=== PATIENT | male | born 1940 | race Caucasian/White ===

== ENCOUNTER 2017-01-19 12:20 | Day surgery (SDC) | payer MEDICARE, OTHER ==
[~2017-01-19 12:20] MED LIST: Brimonidine 0.2% Ophth Soln 5 ML Bottle ONE; Cataract Ophth Solution EYELF PRN; Hypromellose 2.5% Ophth Soln 15 ML Bottle EYELF PRN; Lactated Ringers 1,000 ML IV SCH; Lidocaine 1% 2 ML ONE; Lidocaine 3.5% Ophth Gel 1 ML Bottle ONE; Povidone-Iodine 5% Sterile Ophth Soln 30 ML Bottle ONE
[2017-01-19] MEDS: Proparacaine 0.5% Ophth Soln 15 ML Bottle EYELF PRN ×2 (12:44→14:23)
[2017-01-19] MEDS ORDERED: Midazolam 1 MG/ML 2 ML SDV ONE (13:52)
[2017-01-19] MEDS ORDERED: Chondroitin Sulfate/Hyaluronate Sodium Ophth Inj 0.5 ML Syringe IOCULAR ONE (14:24)
[2017-01-19] MEDS ORDERED: Lidocaine 1% PF 2 ML SDV INJECT ONE (14:24)
[2017-01-19] MEDS ORDERED: Vancomycin 500 MG SDV EYELF ONE (14:25)
[2017-01-19] MEDS ORDERED: Balanced Salt Solution Ophth Irrig 500 ML Bottle IOCULAR ONE (14:25)
[2017-01-19] MEDS ORDERED: Ciprofloxacin 0.3% Ophth Soln 2.5 ML Bottle EYELF ONE (14:25)
[2017-01-19 15:32] VITALS: BP 145/79
--- NOTE | 2017-01-19 18:28 | OR ---
PREOPERATIVE DIAGNOSIS: Senile nuclear cataract, left eye. POSTOPERATIVE DIAGNOSIS: Pseudophakia, left eye. PROCEDURE PERFORMED: Cataract extraction with intraocular lens implantation by phacoemulsification technique, left eye. ANESTHESIA: Topical anesthesia. ESTIMATED BLOOD LOSS: None. COMPLICATIONS: None. INDICATIONS: The patient is a 76-year-old gentleman, who was found to have a senile nuclear cataract, reducing his best corrected visual acuity. After explaining the risks, benefits, and alternatives of cataract surgery, an informed consent was obtained. DESCRIPTION OF PROCEDURE: After identifying the patient in the preoperative area, the patient was brought to the operating room. The patient was prepped and draped in a sterile fashion. A lid speculum was inserted into the eye. The microscope was brought into the field. Lidocaine gel was applied to the external surface of the eye. A paracentesis was made 3 clock hours away from the surgeon's operating hand. The anterior chamber was anesthetized with preservative-free Lidocaine. The anterior chamber was filled with Viscoat. A clear corneal incision was made at the 180-degree meridian with a 2.75mm keratome. A continuous tear circular capsulorrhexis was performed. The nucleus was hydrodissected with balanced salt solution. The nucleus was sculpted and removed from the eye using a divide and conquer technique with the phacoemulsification handpiece. The residual viscoelastic was removed with the I/A handpiece. The anterior chamber and capsular bag were filled with Amvisc. An ACE lens, model PCB00 with a power of 20.0 diopters and a serial number of [id number] was injected into the capsular bag. The lens was rotated completely into the capsular bag with a Sinskey hook. The residual viscoelastic was removed with the I/A handpiece. The anterior chamber was filled with balanced salt solution to a physiologic pressure. The corneal wound was closed with stromal hydration and seen to be water tight by Weck-Bianca sponge testing. The patient received a drop of Zymar and Alphagan at the end of the case. There were no complications of this case. The patient will be followed postoperatively by Dr. Sushma Gant and Dr. Nishant Barbosa. SKA: 01/19/2017 14:39:23 MODL: 01/19/2017 18:21:49 /[id number]
== END 2017-01-19 15:35 | disposition home or self-care (01) ==
LOC: VM.SDS 12:20
PROVIDERS: ATTEND Ophthalmology
DX: H25.12 Age-related nuclear cataract, left eye (principal); Z96.1 Presence of intraocular lens; Z79.899 Other long term (current) drug therapy; Z79.82 Long term (current) use of aspirin
CPT/HCPCS: 00142; 66984; A9270; J2250; J3370; J7120; V2632

== ENCOUNTER 2017-02-16 10:01 | Day surgery (SDC) | payer MEDICARE, OTHER ==
[~2017-02-16 10:01] MED LIST changes: -Cataract Ophth Solution EYELF PRN; +Cataract Ophth Solution EYERT PRN; -Hypromellose 2.5% Ophth Soln 15 ML Bottle EYELF PRN; +Hypromellose 2.5% Ophth Soln 15 ML Bottle EYERT PRN; -Lactated Ringers 1,000 ML IV SCH; +Sodium Chloride 0.9% 10 ML Syringe FLUSH PRN
[2017-02-16] MEDS: Proparacaine 0.5% Ophth Soln 15 ML Bottle EYERT PRN ×2 (10:45→12:17)
[2017-02-16] MEDS ORDERED: Midazolam 1 MG/ML 2 ML SDV ONE (12:14)
[2017-02-16] MEDS ORDERED: Lidocaine 1% PF 2 ML SDV INJECT ONE (12:18)
[2017-02-16] MEDS ORDERED: Chondroitin Sulfate/Hyaluronate Sodium Ophth Inj 0.5 ML Syringe IOCULAR ONE (12:20)
[2017-02-16] MEDS ORDERED: Ciprofloxacin 0.3% Ophth Soln 2.5 ML Bottle EYERT ONE (12:20)
[2017-02-16] MEDS ORDERED: Vancomycin 500 MG SDV EYERT ONE (12:21)
[2017-02-16] MEDS ORDERED: Balanced Salt Solution Ophth Irrig 500 ML Bottle IOCULAR ONE (12:22)
[2017-02-16 13:14] VITALS: BP 153/74
--- NOTE | 2017-02-17 09:31 | OR ---
PREOPERATIVE DIAGNOSIS: Senile nuclear cataract, right eye. POSTOPERATIVE DIAGNOSIS: Pseudophakia, right eye. PROCEDURE PERFORMED: Cataract extraction with intraocular lens implantation by phacoemulsification technique, right eye. ANESTHESIA: Topical anesthesia. ESTIMATED BLOOD LOSS: None. COMPLICATIONS: None. INDICATIONS: The patient is a 76-year-old gentleman, who was found to have a senile nuclear cataract, reducing his best corrected visual acuity. After explaining the risks, benefits, alternatives of cataract surgery an informed consent was obtained. DESCRIPTION OF PROCEDURE: After identifying the patient in the preoperative area, the patient was brought to the operating room. The patient was prepped and draped in a sterile fashion. A lid speculum was inserted into the eye. The microscope was brought into the field. Lidocaine gel was applied to the external surface of the eye. A paracentesis was made 3 clock hours away from the surgeon's operating hand. The anterior chamber was anesthetized with preservative-free Lidocaine. The anterior chamber was filled with Viscoat. A clear corneal incision was made at the 180-degree meridian with a 2.75mm keratome. A continuous tear circular capsulorrhexis was performed. The nucleus was hydrodissected with balanced salt solution. The nucleus was sculpted and removed from the eye using a divide and conquer technique with the phacoemulsification handpiece. The residual viscoelastic was removed with the I/A handpiece. The anterior chamber and capsular bag were filled with Amvisc. An ACE lens, model ZCB00 with a power of 18.0 diopters and a serial number of [id number] was injected into the capsular bag. The lens was rotated completely into the capsular bag with a Sinskey hook. The residual viscoelastic was removed with the I/A handpiece. The anterior chamber was filled with balanced salt solution to a physiologic pressure. The corneal wound was closed with stromal hydration and seen to be water tight by Weck-Bianca sponge testing. The patient received a drop of Zymar and Alphagan at the end of the case. There were no complications of this case. The patient will be followed postoperatively by Dr. Sushma Gant. SKA: 02/16/2017 12:39:57 MODL: 02/16/2017 17:37:47 /[id number]
== END 2017-02-16 13:21 | disposition home or self-care (01) ==
LOC: VM.SDS 10:01
PROVIDERS: ATTEND Ophthalmology
DX: Z96.1 Presence of intraocular lens (principal); I10 Essential (primary) hypertension; E78.5 Hyperlipidemia, unspecified; Z79.899 Other long term (current) drug therapy; Z79.82 Long term (current) use of aspirin; K21.9 Gastro-esophageal reflux disease without esophagitis; J44.9 Chronic obstructive pulmonary disease, unspecified; Z87.891 Personal history of nicotine dependence
CPT/HCPCS: 00142; 66984; A9270; J2250; J3370; J7050; V2632

== ENCOUNTER 2024-08-26 10:31 | Observation (INO) | payer MEDICARE, BC ==
[2024-08-26 10:54] LABS: BASOPHILS PERCENT AUTO 0.6 % (0.2-1.2); EOSINOPHILS ABSOLUTE AUTO 0.1 x10^3/uL (0.0-0.5); EOSINOPHILS PERCENT AUTO 1.1 % (0.0-4.0); HEMATOCRIT 37.9 % (40.0-52.0); HEMOGLOBIN 13.3 g/dL (14.0-18.0); IMMATURE GRAN ABSOLUTE AUTO 0.02 x10^3/uL (0.00-0.07); LYMPHOCYTES ABSOLUTE AUTO 1.5 x10^3/uL (1.0-4.8); LYMPHOCYTES PERCENT AUTO 22.2 % (25.0-50.0); MEAN CORPUSCULAR HEMOGLOBIN 31.9 pg (26.0-32.0); MEAN CORPUSCULAR HGB CONC 35.1 g/dL (32.0-36.0); MEAN CORPUSCULAR VOLUME 90.9 fL (78.0-93.0); MONOCYTES ABSOLUTE AUTO 0.4 x10^3/uL (0.0-0.8); MONOCYTES PERCENT AUTO 6.7 % (2.0-11.0); NEUTROPHILS ABSOLUTE AUTO 4.5 x10^3/uL (1.8-7.7); NEUTROPHILS PERCENT AUTO 69.1 % (50.0-80.0); PLATELET COUNT,PLT 146 x10^3/uL (130-400); RED BLOOD CELL COUNT 4.17 x10^6/uL (4.5-6.0); WHITE BLOOD CELL COUNT,WBC 6.5 x10^3/uL (4.0-10.0)
[2024-08-26] MEDS ORDERED: HYDROMORPHONE 1 MG/ML PO ONE (10:57)
[2024-08-26] MEDS ORDERED: HYDROMORPHONE 1 MG/ML PO PRN ×2 (11:11→11:13)
[2024-08-26 11:13] LABS: A/G RATIO 1.06; ALBUMIN 3.4 g/dL (3.4-5.0); BILIRUBIN TOTAL 0.6 mg/dL (0.2-1.0); CALCIUM 9.8 mg/dL (8.5-10.1); CREATININE 1.3 mg/dL (0.70-1.30); EST CRCL DRUG DOSING (CG) 44.57 mL/min; PROTEIN TOTAL,TP 6.6 g/dL (6.4-8.2)
[2024-08-26] MEDS: HYDROmorphone 1 MG/ML Syringe IVPUSH ONE (11:21)
[2024-08-26] MEDS: Naloxone 0.4 MG/ML SDV IVPUSH PRN (11:22)
[2024-08-26] MEDS ORDERED: Ondansetron 4 MG Tab.DIS PO PRN (14:31)
[2024-08-26] MEDS: predniSONE 20 MG Tab PO ONE (15:09)
[2024-08-26] MEDS: HYDROmorphone 0.5 MG/0.5 ML Syringe IVPUSH PRN (15:09)
[2024-08-26] MEDS: Doxazosin 4 MG Tab PO SCH (21:25)
[2024-08-26] MEDS: atorvaSTATin 10 MG Tab PO SCH (21:25)
[2024-08-26] MEDS: oxyCODONE 5 MG Tab PO PRN (21:31)
[2024-08-27 00:48] VITALS: BP 114/71; PULSE 94
[2024-08-27] MEDS ORDERED: Beta-Carotene (Vitamin A) w/Vitamin C & E plus Minerals Tab PO SCH (09:00)
[2024-08-27] MEDS ORDERED: Non-Formulary Medication 1 Each (Hydrochlorothiazide [Hydrochlorothiazide] 12.5 MG Tablet) PO SCH (09:00)
[2024-08-27] MEDS ORDERED: Metoprolol Succinate 50 MG Tab.ER PO SCH (09:00)
== END 2024-08-27 00:40 | disposition short-term general hospital (02) ==
LOC: VM.ED 10:31 → INTOOBSV 13:45 → VM.MS 13:45 → UNDOADMIN 13:56 → VM.MS 13:56
PROVIDERS: ADMIT Internal Medicine; ATTEND Family Medicine
DX: M54.9 Dorsalgia, unspecified (principal); R29.898 Other symptoms and signs involving the musculoskeletal system; I12.9 Hypertensive chronic kidney disease with stage 1 through stage 4 chronic kidney disease, or unspecified chronic kidney disease; N18.30 Chronic kidney disease, stage 3 unspecified; E78.5 Hyperlipidemia, unspecified; N40.0 Benign prostatic hyperplasia without lower urinary tract symptoms
CPT/HCPCS: 51701; 51798; 72100; 80053; 85025; 99239; A9270-GY; J1171; J2310; J7512; Q3014

== ENCOUNTER 2024-08-31 10:32 | Inpatient (IN) | payer MEDICARE, BC ==
[2024-08-31] MEDS ORDERED: Ondansetron 4 MG Tab.DIS PO PRN (11:00)
[2024-08-31] MEDS: atorvaSTATin 10 MG Tab PO SCH (21:31)
[2024-08-31] MEDS: Doxazosin 4 MG Tab PO SCH (21:31)
[2024-09-01] MEDS: oxyCODONE 5 MG Tab PO PRN (01:17)
[2024-09-01] MEDS: Metoprolol Succinate 50 MG Tab.ER PO SCH (10:06)
[2024-09-01] MEDS: Ferrous Sulfate 325 MG Tab PO SCH (10:06)
[2024-09-01] MEDS: Multivitamin Tab PO SCH (10:06)
[2024-09-01] MEDS: Hydrochlorothiazide 25 MG Tab PO SCH (10:08)
[2024-09-01] MEDS: Nicotine 14 MG/24 Hr Patch TRDERM SCH (10:13)
[2024-09-01] MEDS: traZODone 50 MG Tab PO PRN (20:53)
[2024-09-02] MEDS: LORazepam 1 MG Tab PO PRN (08:41)
[2024-09-03] MEDS: Aspirin 81 MG Tab.Chew PO SCH (10:09)
[2024-09-04] MEDS: Docusate Sodium 100 MG Cap PO PRN (08:26)
[2024-09-04] MEDS ORDERED: Acetaminophen 500 MG Tab PO PRN (20:30)
[2024-09-07] MEDS: Beta-Carotene (Vitamin A) w/Vitamin C & E plus Minerals Tab PO SCH (12:58)
[2024-10-05] MEDS ORDERED: Menthol Lozenge MUCMEM PRN (22:15)
[2024-10-12 14:50] VITALS: BP 141/60; PULSE 87
== END 2024-10-12 14:15 | disposition home health service (06) | DRG 948 ==
LOC: VM.MS 14:42
PROVIDERS: ADMIT Family Medicine; ATTEND Family Medicine
DX: R53.1 Weakness (principal); I12.9 Hypertensive chronic kidney disease with stage 1 through stage 4 chronic kidney disease, or unspecified chronic kidney disease; N18.9 Chronic kidney disease, unspecified; K21.9 Gastro-esophageal reflux disease without esophagitis; E78.00 Pure hypercholesterolemia, unspecified; H26.9 Unspecified cataract; F15.90 Other stimulant use, unspecified, uncomplicated; R26.89 Other abnormalities of gait and mobility; R33.9 Retention of urine, unspecified; G89.18 Other acute postprocedural pain; M54.42 Lumbago with sciatica, left side; M54.41 Lumbago with sciatica, right side; Z98.890 Other specified postprocedural states; Z79.1 Long term (current) use of non-steroidal anti-inflammatories (NSAID); Z79.02 Long term (current) use of antithrombotics/antiplatelets; Z98.49 Cataract extraction status, unspecified eye; Z79.899 Other long term (current) drug therapy
CPT/HCPCS: 51798; 95851-GO; 97110-GP; 97116-GP; 97161-GP; 97164-GP; 97165-GO; 97530-GO; 97530-GP; 97535-GO; 99307; 99307-GT; A9270-GY